=== PATIENT | male | born 1950 | race Caucasian/White ===

== ENCOUNTER 2016-05-08 06:02 | Day surgery (SDC) | payer OTHER ==
[~2016-05-08] VITALS: Ht 180.3 cm; Wt 91.8 kg
[~2016-05-08 06:02] MED LIST: LISI-127 PO; PANT40TA32 PO
--- OUTSIDE RECORDS SUMMARY | 2016-05-08 06:06 | XMS REPORT | Referral Summary ---
Author Author [facility] Organization [facility] Address Unknown Phone Unavailable Care Team Providers Care Water Conservation Specialist Name Role Phone Jae Qureshi Primary Care Physician [phone] Encounter [facility] Date(s): 06/11/14 - 06/11/14 [facility] Family [address] [place] [address]- Discharge Disposition: 01-Home or Self Care Attending Physician: Ed Qureshi MD Admitting Physician: Ed Qureshi MD Vital Signs Most recent to 1 oldest [Reference Range]: Peripheral Pulse 76 bpm Rate [60-100 bpm] (06/11/14 7:23 AM) Blood Pressure 104/76 mmHg [90-140/60-90 mmHg] (06/11/14 7:23 AM) Problem List Condition Effective Dates Status Health Status Informant Actinic Active keratoses(Confirmed) Benign essential Active hypertension(Confirm ed) BPH (benign Active prostatic hyperplasia)(Confirm ed) Testicular Active nodule(Confirmed) Well adult Active exam(Confirmed) Need for hepatitis A Active and B vaccination(Confirme d) Allergies, Adverse Reactions, Alerts No Known Medication Allergies Medications lisinopril 10 mg oral tablet 10 mg 1 tabs, Oral, Daily, # 90 tabs, 3 Refill(s), Pharmacy: [facility] # [id number], DC 5 mg Lisinopril, 1 tabs Oral Daily Start Date: 10/29/14 Status: Ordered lisinopril 5 mg oral tablet 1 tabs, Oral, Daily, # 90 tabs, 3 Refill(s), Pharmacy: [facility] #[id number] , 1 tabs Oral Daily,x90 days Start Date: 06/11/14 Stop Date: 06/06/15 Status: Ordered Results Hematology Most recent to 1 oldest [Reference Range]: WBC [4.8-10.8 6.0 10*3/uL 10*3/uL] (06/11/14 8:47 AM) RBC [4.60-6.20 4.73 10*6/uL 10*6/uL] (06/11/14 8:47 AM) Hgb [14.0-18.0 14.5 gm/dL gm/dL] (06/11/14 8:47 AM) Hct [42.0-52.0 %] 42.2 % (06/11/14 8:47 AM) MCV [82.0-99.0 fL] 89.2 fL (06/11/14 8:47 AM) MCH [27.0-32.0 pg] 30.7 pg (06/11/14:47 AM) MCHC [32.0-36.0 34.4 gm/dL gm/dL] (06/11/14 8:47 AM) RDW [11.5-14.5 %] 12.5 % (06/11/14 8:47 AM) Platelet [150-400 229 10*3/uL 10*3/uL] (06/11/14 8:47 AM) MPV [8.8-14.8 fL] 10.4 fL (06/11/14 8:47 AM) Immature 0.0 % Granulocytes (06/11/14 8:47 AM) [0.0-1.0 %] Neutrophils [51-75 51 % %] (06/11/14 8:47 AM) Lymphocytes [20-46 36 % %] (06/11/14 8:47 AM) Monocytes [4-11 %] 9 % (06/11/14 8:47 AM) Eosinophils [0-4 %] 4 % (06/11/14 8:47 AM) Basophils [0-2 %] 1 % (06/11/14 8:47 AM) Neutro Absolute 3.04 10*3 [1.90-7.00 10*3] (06/11/14 8:47 AM) Lymph Absolute 2.15 THOUS [0.80-3.30 THOUS] (06/11/14 8:47 AM) [place] Absolute 0.51 THOUS [0.30-1.00 THOUS] (06/11/14 8:47 AM) Eos Absolute 0.24 THOUS [0.00-0.50 THOUS] (06/11/14 8:47 AM) Baso Absolute 0.05 THOUS [0.00-0.20 THOUS] (06/11/14 8:47 AM) Chemistry Most recent to 1 oldest [Reference Range]: Sodium Lvl [135-144 144 mEq/L mEq/L] (06/11/14 8:47 AM) Potassium Lvl 4.2 mEq/L [3.5-5.2 mEq/L] (06/11/14 8:47 AM) Chloride [99-111 113 mEq/L mEq/L] *HI* (06/11/14 8:47 AM) CO2 [23-31 mEq/L] 24 mEq/L (06/11/14 8:47 AM) AGAP [3-20] 7 (06/11/14 8:47 AM) BUN [8-26 mg/dL] 13 mg/dL (06/11/14 8:47 AM) Glucose Lvl [70-99 95 mg/dL mg/dL] (06/11/14 8:47 AM) Creatinine Lvl 1.14 mg/dL [0.72-1.25 mg/dL] (06/11/14 8:47 AM) eGFR [>60 mL/min] >60 mL/min 1 (06/11/14 8:47 AM) Calcium Lvl 9.1 mg/dL [8.9-10.5 mg/dL] (06/11/14 8:47 AM) Albumin Lvl [3.4-4.8 4.3 gm/dL gm/dL] (06/11/14 8:47 AM) Total Protein 6.4 gm/dL [6.2-8.1 gm/dL] (06/11/14 8:47 AM) Globulin [1.8-4.0 2.1 gm/dL gm/dL] (06/11/14 8:47 AM) ALT [0-55 U/L] 22 U/L (06/11/14 8:47 AM) AST [5-34 U/L] 22 U/L (06/11/14 8:47 AM) Alk Phos [40-150 100 U/L U/L] (06/11/14 8:47 AM) Bili Total [0.2-1.2 0.8 mg/dL mg/dL] (06/11/14 8:47 AM) PSA (wihout Reflex 1.3 ng/mL 2 Free) [0.0-4.5 (06/11/14 8:47 AM) ng/mL] Chol [0-199 mg/dL] 161 mg/dL (06/11/14 8:47 AM) Trig [0-149 mg/dL] 101 mg/dL (06/11/14 8:47 AM) HDL [40-84 mg/dL] 41 mg/dL (06/11/14 8:47 AM) LDL [0-130 mg/dL] 100 mg/dL (06/11/14 8:47 AM) VLDL Cholesterol 20 mg/dL [0-28 mg/dL] (06/11/14 8:47 AM) Cardiac Risk 3.9 [0.0-5.7] (06/11/14 8:47 AM) 1Result Comment: Multiply eGFR results by 1.21 for race. 2Result Comment: AUA PSA Best Practice Guidelines: Age-Adjusted PSA Values by Ethnic Group Age Range Asians - Caucasians Americans 40-49 0-2.0 0-2.0 0-2.5 50-59 0-3.0 0-4.0 0-3.5 60-69 0-4.0 0-4.5 0-4.5 70-79 0-5.0 0-5.5 0-6.5 Urinalysis Most recent to 1 oldest [Reference Range]: UA Color Yellow (06/11/14 8:54 AM) UA Appear Clear (06/11/14 8:54 AM) UA pH [5.0-8.0] 5.5 (06/11/14 8:54 AM) UA Leuk Est Negative [Negative] (06/11/14 8:54 AM) UA Nitrite Negative [Negative] (06/11/14 8:54 AM) UA Protein Negative [Negative] (06/11/14 8:54 AM) UA Glucose Negative [Negative] (06/11/14 8:54 AM) UA Ketones Negative [Negative] (06/11/14 8:54 AM) UA Urobilinogen 0.2 mg/dL [<1.0 mg/dL] (06/11/14 8:54 AM) UA Bili [Negative] Negative (06/11/14 8:54 AM) UA Blood [Negative] Negative (06/11/14 8:54 AM) UA Spec Grav 1.021 [1.003-1.030] (06/11/14 8:54 AM) Type Clean Catch (06/11/14 8:54 AM) Immunizations Vaccine Date Refusal Reason hepatitis A-hepatitis B vaccine 06/11/14 zoster vaccine live 01/13/13 Procedures Procedure Date Related Diagnosis Body Site Collection of venous blood by venipuncture 06/11/14 Esophagogastroduodenoscopy 2011 Colonoscopy 2006 Esophagogastroduodenoscopy 2006 Breast biopsy sample1 1999 Achilles tendon repair2 1997 Tendon repair by distal insertion3 1994 Cholecystectomy 1974 Tonsillectomy with adenoidectomy 1958 1left breast cyst removed--benign 2rigfht Achilles 3left thumb Social History Social History Type Response Smoking Status Never smoker Assessment and Plan Extracted from: Title: Ambulatory Patient Education Author: Ed Qureshi MD Date: Family Medicine Health Maintenance, Males A healthy lifestyle and preventative care can promote health and wellness. Maintain regular health, dental, and eye exams. Eat a healthy diet. Foods like vegetables, fruits, whole grains, low-fat dairy products, and lean protein foods contain the nutrients you need and are low in calories. Decrease your intake of foods high in solid fats, added sugars , and salt. Get information about a proper diet from your health care provider, if necessary. Regular physical exercise is one of the most important things you can do for your health. Most adults should get at least 150 minutes of moderate- intensity exercise (any activity that increases your heart rate and causes you to sweat) each week. In addition, most adults need muscle-strengthening exercises on 2 or more days a week. Maintain a healthy weight. The body mass index (BMI) is a screening tool to identify possible weight problems. It provides an estimate of body fat based on height and weight. Your health care provider can find your BMI and can help you achieve or maintain a healthy weight. For males 20 years and older: A BMI below 18.5 is considered underweight. A BMI of 18.5 to 24.9 is normal. A BMI of 25 to 29.9 is considered overweight. A BMI of 30 and above is considered obese. Maintain normal blood lipids and cholesterol by exercising and minimizing your intake of saturated fat. Eat a balanced diet with plenty of fruits and vegetables. Blood tests for lipids and cholesterol should begin at age 20 and be repeated every 5 years. If your lipid or cholesterol levels are high, you are over 50, or you are at high risk for heart disease, you may need your cholesterol levels checked more frequently.Ongoing high lipid and cholesterol levels should be treated with medicines, if diet and exercise are not working. If you smoke, find out from your health care provider how to quit. If you do not use tobacco, do not start. Lung cancer screening is recommended for adults aged 5580 years who are at high risk for developing lung cancer because of a history of smoking. A yearly low-dose CT scan of the lungs is recommended for people who have at least a 85-plly-sbod history of smoking and are a current smoker or have quit within the past 15 years. A pack year of smoking is smoking an average of 1 pack of cigarettes a day for 1 year (for example, a 71-okgy-ilyj history of smoking could mean smoking 1 pack a day for 30 years or 2 packs a day for 15 years). Yearly screening should continue until the smoker has stopped smoking for at least 15 years. Yearly screening should be stopped for people who develop a health problem that would prevent them from having lung cancer treatment. If you choose to drink alcohol, do not have more than 2 drinks per day. One drink is considered to be 12 oz (360 mL) of beer, 5 oz (150 mL) of wine, or 1.5 oz (45 mL) of liquor. Avoid use of street drugs. Do not share needles with anyone. Ask for help if you need support or instructions about stopping the use of drugs. High blood pressure causes heart disease and increases the risk of stroke. Blood pressure should be checked at least every 12 years. Ongoing high blood pressure should be treated with medicines if weight loss and exercise are not effective. If you are 4579 years old, ask your health care provider if you should take aspirin to prevent heart disease. Diabetes screening involves taking a blood sample to check your fasting blood sugar level. This should be done once every 3 years after age 45, if you are at a normal weight and without risk factors for diabetes. Testing should be considered at a younger age or be carried out more frequently if you are overweight and have at least 1 risk factor for diabetes. Colorectal cancer can be detected and often prevented. Most routine colorectal cancer screening begins at the age of 50 and continues through age 75. However, your health care provider may recommend screening at an earlier age if you have risk factors for colon cancer. On a yearly basis, your health care provider may provide home test kits to check for hidden blood in the stool. A small camera at the end of a tube may be used to directly examine the colon (sigmoidoscopy or colonoscopy ) to detect the earliest forms of colorectal cancer. Talk to your health care provider about this at age 50, when routine screening begins. A direct exam of the colon should be repeated every 5 10 years through age 75, unless early forms of pre-cancerous polyps or small growths are found. People who are at an increased risk for hepatitis B should be screened for this virus. You are considered at high risk for hepatitis B if: You were born in a country where hepatitis B occurs often. Talk with your health care provider about which countries are considered high-risk. Your parents were born in a high-risk country and you have not received a shot to protect against hepatitis B (hepatitis B vaccine) . You have HIV or AIDS. You use needles to inject street drugs. You live with, or have sex with, someone who has hepatitis B. You are a man who has sex with other men (MSM). You get hemodialysis treatment. You take certain medicines for conditions like cancer, organ transplantation, and autoimmune conditions. Hepatitis C blood testing is recommended for all people born from 1945 through 1965 and any individual with known risk factors for hepatitis C. Healthy men should no longer receive prostate-specific antigen (PSA) blood tests as part of routine cancer screening. Talk to your health care provider about prostate cancer screening. Testicular cancer screening is not recommended for adolescents or adult males who have no symptoms. Screening includes self-exam, a health care provider exam, and other screening tests. Consult with your health care provider about any symptoms you have or any concerns you have about testicular cancer. Practice safe sex. Use condoms and avoid high-risk sexual practices to reduce the spread of sexually transmitted infections (STIs). Use sunscreen. Apply sunscreen liberally and repeatedly throughout the day. You should seek shade when your shadow is shorter than you. Protect yourself by wearing long sleeves, pants, a wide-brimmed hat, and sunglasses year round, whenever you are outdoors. Tell your health care provider of new moles or changes in moles, especially if there is a change in shape or color. Also tell your provider if a mole is larger than the size of a pencil eraser. A one-time screening for abdominal aortic aneurysm (AAA) and surgical repair of large AAAs by ultrasound is recommended for men aged 6575 years who are current or former smokers. Stay current with your vaccines (immunizations ). Document Released: 07/20/2008 Document Revised: 11/12/2013 Document Reviewed: Exit[employer] Patient Information 2014 [employer]. No follow up information was provided. Extracted from: Title: Male physical Author: Ed Qureshi MD Date: 06/11/14 Impression and Plan Diagnosis Actinic keratoses (ICD9 702.0, Working, Medical). Benign essential hypertension (ICD9 401.1, Working, Medical). Testicular nodule (ICD9 608.89, Working, Medical). Well adult exam (ICD9 V70.0, Working, Medical). Plan: Try Flonase nasal spray or one week to see if that clears up your ear. If not--see an ENT Dr. for evaluation. Schedule an ultrasound of the scrotum at the lab desk. Get lab drawn today. Reduce your Lisinopril to 5 mg daily and then check your BP periodically. Healthy diet and daily exercise helps BP. Twinrix vaccine #1 today. See me in 6 months and as needed., Consider Efudex cream to the face for 2-4 weeks for treatment of the actinic keratoses.. Orders Orders (Selected) Outpatient Orders Ordered Periodic Comp Preventive Med 40 to 64 years Est 21806: hepatitis A-hepatitis B vaccine: 0.5 mL, IntraMuscular, Once Future (On Hold) CBC w/ Differential: CMP: Fasting Lipid Profile: PSA: Routine Urinalysis: US Scrotum (Contents): Prescriptions Prescribed lisinopril 5 mg oral tablet: 1 tabs, Oral, Daily, for 90 days, 90 tabs, 3 Refill (s). Dx/Order Association Plan: Diagnosis: Actinic keratoses Comment: Ordered: Periodic Comp Preventive Med 40 to 64 years Est 42948; 8:14:00 CDT, Well adult exam | Testicular nodule | Benign essential hypertension | Actinic keratoses | Family history of prostate cancer Diagnosis: BPH (benign prostatic hyperplasia) Comment: Ordered: Periodic Comp Preventive Med 40 to 64 years Est 77528; 8:14:00 CDT, Well adult exam | Testicular nodule | Benign essential hypertension | Actinic keratoses | Family history of prostate cancer Diagnosis: Benign essential hypertension Comment: Ordered: Periodic Comp Preventive Med 40 to 64 years Est 32875; 8:14:00 CDT, Well adult exam | Testicular nodule | Benign essential hypertension | Actinic keratoses | Family history of prostate cancer Diagnosis: Family history of prostate cancer Comment: Ordered: Periodic Comp Preventive Med 40 to 64 years Est 32729; 8:14:00 CDT, Well adult exam | Testicular nodule | Benign essential hypertension | Actinic keratoses | Family history of prostate cancer Diagnosis: Need for hepatitis A and B vaccination Comment: Ordered: hepatitis A-hepatitis B vaccine; 0.5 mL, IntraMuscular, Once, First Dose: 06/11/14 8:19:00 CDT, Stop Date: 06/11/14 8:19:00 CDT Diagnosis: Testicular nodule Comment: Ordered: Periodic Comp Preventive Med 40 to 64 years Est 47018; 8:14:00 CDT, Well adult exam | Testicular nodule | Benign essential hypertension | Actinic keratoses | Family history of prostate cancer Diagnosis: Well adult exam Comment: Ordered: hepatitis A-hepatitis B vaccine; 0.5 mL, IntraMuscular, Once, First Dose: 06/11/14 8:19:00 CDT, Stop Date: 06/11/14 8:19:00 CDT Periodic Comp Preventive Med 40 to 64 years Est 19475; 06/11/14 8:14:00 CDT, Well adult exam | Testicular nodule | Benign essential hypertension | Actinic keratoses | Family history of prostate cancer Additional Orders: Comment: Future Orders: CBC w/ Differential,Blood, Routine Collect, 06/11/14 , Once, Lab Collect, Benign essential hypertension, Order for future visit Future Orders: CMP,Blood, Routine Collect, 06/11/14, Once, Lab Collect, Benign essential hypertension, Order for future visit Future Orders: Fasting Lipid Profile,Blood, Routine Collect, , Once, Lab Collect, Benign essential hypertension, Order for future visit Future Orders: PSA,Blood, Routine Collect, 06/11/14, Once, Lab Collect, Well adult exam, Order for future visit Future Orders: Routine Urinalysis,Urine, Routine collect, 06/11/14 , Once, Nurse Collect Non-Blood, Benign essential hypertension, Order for future visit Future Orders: US Scrotum (Contents),06/11/14, Routine, Reason: Other (please specify), Reason: right testicular nodule, Testicular nodule Ordered: lisinopril 5 mg oral tablet,1 tabs, Oral, Daily, # 90 tabs , 3 Refill(s), Pharmacy: [facility] #[id number], 1 tabs Oral Daily,x90 days End of Orders ."
--- OUTSIDE RECORDS SUMMARY | 2016-05-08 06:06 | XMS REPORT | Continuity of Care Document ---
Author Author Ed Qureshi MD Organization [facility] Address [address] [facility] [place] [address] Phone Care Team Providers Care Wet Char Conveyor Tender Name Role Phone Ed Qureshi PP Unavailable Payers Payer name Insurance type Covered constitution party ID Authorization(s) Unknown Problems Condition Effective Dates (start - stop) Clinical Status NEED FOR PROPHYLACTIC VACCINATION AND INOCULATION, OTHER VIRAL DISEASES - Routine Medical Exam - *Stable Hypertension, Benign - *Chronic RESTLESS LEGS SYNDROME - BENIGN HYPERTENSION - ESOPHAGEAL REFLUX - CHRONIC LIVER DIS NEC - Knee pain, left - *Chronic Effusion of left knee - *Acute Effusion of lower leg joint - *Chronic Meniscus tear - *Symptomatic Family History Family Member Diagnosis Age At Onset Status Father (Unknown) Alive and well (Unknown) Brother (Unknown) Cancer -prostate Yes Family h/o (Unknown) Diabetes No Maternal grandfather (Unknown) Myocardial infarction Yes Sister (Unknown) stillbirth Yes Paternal grandfather (Unknown) atherosclerosis Yes Mother (Unknown) Motor Vehicle Accident Yes Social History Social History Element Description Quantity Unknown Allergies, Adverse Reactions, Alerts Substance Reaction Severity Status Unknown Medications Medication Instructions Dosage Effective Dates (start - stop) Status Protonix 40 mg tablet,delayed release Take 1 tablet by mouth every day as needed. - Active lisinopril 10 mg tablet Take 1 tablet by mouth daily - Active Immunizations Vaccine Date Status Comments Zoster completed Tdap (Adacel ) completed - Completed reason: source unspecified Results Test Name Date and Time Measure Units Reference Range Abnormal Flag Comments Panel Description: CBC WBC 08:38:00 5.9 K/uL 4.8-10.8 RBC 08:38:00 4.79 M/uL 4.60-6.20 HGB 08:38:00 14.6 g/dl 14.0-18.0 HCT 08:38:00 42.5 % 42.0-52.0 MCV 08:38:00 88.7 fL 82.0-99.0 MCH 08:38:00 30.5 pg 27.0-32.0 MCHC 08:38:00 34.4 g/dL 32.0-36.0 RDW 08:38:00 12.6 % 11.5-14.5 MPV 08:38:00 10.3 fL 8.8-14.8 Platelet Count 08:38:00 218 K/uL 150-400 Immature Granulocytes 08:38:00 0.2 % 0.0-1.0 Absolute Neutrophils 08:38:00 3.29 THOUS 1.90-7.00 Absolute Lymphocytes 08:38:00 1.80 THOUS 0.80-3.30 Absolute Monocytes 08:38:00 0.56 THOUS 0.30-1.00 Absolute Eosinophils 08:38:00 0.23 THOUS 0.00-0.50 Absolute Basophils 08:38:00 0.04 THOUS 0.00-0.20 Neutrophils 08:38:00 55 % 51-75 Lymphocytes 08:38:00 30 % 20-46 Monocytes 08:38:00 9 % 4-11 Eosinophils 08:38:00 4 % 0-4 Basophils 08:38:00 1 % 0-2 Testing performed at [facility] Lab [address] [facility] [address] Cable Tester Dalton Goodson MD Panel Description: Chemistry Profile Glucose 08:38:00 96 mg/dL 70-99 BUN 08:38:00 16 mg/dL 8-26 Creatinine 08:38:00 1.16 mg/dL 0.72-1.25 Calcium 08:38:00 9.2 mg/dL 8.9-10.5 Sodium 08:38:00 144 mEq/L 135-144 Potassium 08:38:00 4.2 mEq/L 3.5-5.2 Chloride 08:38:00 110 mEq/L 99-111 CO2 08:38:00 27 mEq/L 23-31 Albumin 08:38:00 4.2 g/dL 3.4-4.8 Bilirubin Total 08:38:00 0.6 mg/dL 0.2-1.2 Alkaline Phosphatase 08:38:00 92 U/L 40-150 Protein 08:38:00 6.5 g/dL 6.2-8.1 ALT (SGPT) 08:38:00 23 U/L 0-55 AST (SGOT) 08:38:00 20 U/L 5-34 Anion Gap 08:38:00 7 3-20 Globulin 08:38:00 2.3 g/dL 1.8-4.0 Testing performed at [facility] Lab [address] [place], [place] [address] Cable Tester Dalton Goodson MD Panel Description: Lipid Profile-[facility] Cholesterol 08:38:00 164 mg/dL 0-199 Triglycerides 08:38:00 94 mg/dL 0-149 HDL Cholesterol 08:38:00 43 mg/dL 40-84 LDL Cholesterol 08:38:00 102 mg/dL 0-130 VLDL Cholesterol 08:38:00 19 mg/dL 0-28 Cardiac Risk 08:38:00 3.8 0.0-5.7 Testing performed at [facility] Lab [address] [place] [id number] Cable Tester Dalton Goodson MD Panel Description: Non-HDL Cholesterol-[facility] Non-HDL Cholesterol 08:38:00 121 mg/dL 0-159 Testing performed at [facility] Reference Lab [address] [place] [address] Cable Tester Dalton Goodson MD Panel Description: EGFR-[facility] eGFR 08:38:00 >60 mL/min >60 Multiply eGFR results by 1.21 for race.Testing performed at [facility] Lab [address] [place] [address] Cable Tester Dalton Goodson MD Panel Description: Prostatic Specific Antigen-[facility] PSA 08:38:00 0.8 ng/mL 0.0-4.5 AUA PSA Best Practice Guidelines: Age-Adjusted PSA Values by Ethnic GroupAge Range Asians - Caucasians [id number] 0-2.0 0-2.0 0-2.550-59 0-3.0 0-4.0 0-3.560-69 0-4.0 0-4.5 0-4.570-79 0-5.0 0-5.5 0-6.5Testing performed at [facility] [address] [place] [address] Cable Tester Dalton Goodson MD Panel Description: Urinalysis with Reflex Microscopic Appearance 08:38:00 Turbid A Color 08:38:00 Yellow Glucose, Urine 08:38:00 Negative Negative Ketones 08:38:00 Negative Negative Blood 08:38:00 Negative Negative Protein 08:38:00 Negative Negative Nitrites 08:38:00 Negative Negative Bilirubin 08:38:00 Negative Negative Specific [place] 08:38:00 1.028 1.003-1.03 pH 08:38:00 5.0 5.0-8.0 Urobilinogen 08:38:00 0.2 mg/dL <1.0 Leukocyte Esterase 08:38:00 Negative Negative Testing performed at [facility] [address] [place] [address] Cable Tester Dalton Goodson MD Vital Signs Date / Time: Height Weight Pulse Rate Blood Pressure Temperature /07:58:00 71.38 in 196.00 lbs 78 /min 122/73 mm[Hg] 97.9 F Procedures Procedure Date ZOSTER VACC, SC IMMUNIZ,ADMIN,SINGLE Encounters Encounter Location Date Patient Visit [facility] Patient Visit [facility] Patient Visit [facility] Patient Visit [facility] Patient Visit [facility] Patient Visit [facility] Advance Directives Directive Effective Date Unknown
--- OUTSIDE RECORDS SUMMARY | 2016-05-08 06:07 | XMS REPORT | Continuity of Care Document ---
Author Author [facility] Organization [facility] Address Unknown Phone Unavailable Allergies Active Description Code Type Severity Reaction Onset Reported/Identified Relationship to Patient Clinical Status Yes No Known Medication Allergies NKMA N/A N/A 06/11/2014 Medications Problems Procedures Results Encounters ACCT No. Visit Date/Time Discharge Status Pt. Type Provider Facility Loc./Unit Complaint [id number] 05/01/2013 08:22:00 05/01/2013 23 :59:59 [facility] Outpatient [id number] 01/13/2013 07:34:00 01/13/2013 23 :59:59 [facility] Out[facility]
--- OUTSIDE RECORDS SUMMARY | 2016-05-08 06:07 | XMS REPORT | Referral Summary ---
Author Author [facility] Organization [facility] Address Unknown Phone Unavailable Care Team Providers Care Skoog Machine Operator Name Role Phone Jae Qureshi Primary Care Physician [phone] Encounter Date(s): 10/21/15 - 10/21/15 [facility] [address] [place] [address]- Discharge Diagnosis: Need for influenza vaccination Discharge Diagnosis: Well adult exam Discharge Diagnosis: BPH (benign prostatic hyperplasia) Discharge Diagnosis: Benign essential hypertension Discharge Diagnosis: Fatty liver Discharge Diagnosis: Need for hepatitis A and B vaccination Discharge Disposition: 01-Home or Self Care Attending Physician: Ed Qureshi MD Admitting Physician: Ed Qureshi MD Vital Signs Most recent to 1 oldest [Reference Range]: Temperature Tympanic 35.8 degC [36.6-38.1 degC] *LOW* (10/21/15 7:07 AM) Peripheral Pulse 70 bpm Rate [60-100 bpm] (10/21/15 7:07 AM) Blood Pressure 124/70 mmHg [90-140/60-90 mmHg] (10/21/15 7:07 AM) Problem List Condition Effective Dates Status Health Status Informant Actinic Active keratoses(Confirmed) Powell Active esophagus(Confirmed) Benign essential Active hypertension(Confirm ed) BPH (benign Active prostatic hyperplasia)(Confirm ed) Testicular Active nodule(Confirmed) GERD(Confirmed) Active Hypertension(Confirm Active ed) Well adult Active exam(Confirmed) Need for hepatitis A Active and B vaccination(Confirme d) Allergies, Adverse Reactions, Alerts No Known Medication Allergies Medications Co Q-10 100 mg oral capsule 100 mg 1 caps, Oral, Daily, 0 Refill(s) Start Date: 10/21/15 Status: Ordered Fish Oil 1000 mg oral capsule 1,000 mg 1 caps, Oral, Daily, 0 Refill(s) Start Date: 10/21/15 Status: Ordered lisinopril 10 mg oral tablet 10 mg 1 tabs, Oral, Daily, # 90 tabs, 3 Refill(s), Pharmacy: [facility] # [id number], DC 5 mg Lisinopril, 1 tabs Oral Daily Start Date: 10/29/14 Status: Ordered Results Hematology Most recent to 1 oldest [Reference Range]: WBC [4.8-10.8 5.8 10*3/uL 10*3/uL] (10/21/15 8:20 AM) RBC [4.60-6.20] 4.46 *LOW* (10/21/15 8:20 AM) Hgb [14.0-18.0 13.9 gm/dL gm/dL] *LOW* (10/21/15 8:20 AM) Hct [42.0-52.0 %] 39.8 % *LOW* (10/21/15 8:20 AM) MCV [82.0-99.0 fL] 89.2 fL (10/21/15 8:20 AM) MCH [27.0-32.0 pg] 31.2 pg (10/21/15 8:20 AM) MCHC [32.0-36.0 34.9 gm/dL gm/dL] (10/21/15 8:20 AM) RDW [11.5-14.5 %] 12.9 % (10/21/15 8:20 AM) Platelet [150-400 208 10*3/uL 10*3/uL] (10/21/15 8:20 AM) MPV [8.8-14.8 fL] 10.4 fL (10/21/15 8:20 AM) Immature 0.3 % Granulocytes (10/21/15 8:20 AM) [0.0-1.0 %] Neutrophils [51-75 46 % %] *LOW* (10/21/15 8:20 AM) Lymphocytes [20-46 35 % %] (10/21/15 8:20 AM) Monocytes [4-11 %] 11 % (10/21/15 8:20 AM) Eosinophils [0-4 %] 7 % *HI* (10/21/15 8:20 AM) Basophils [0-2 %] 1 % (10/21/15 8:20 AM) Neutro Absolute 2.64 10*3 [1.90-7.00 10*3] (10/21/15 8:20 AM) Lymph Absolute 2.04 10*3 [0.80-3.30 10*3] (10/21/15 8:20 AM) [place] Absolute 0.61 10*3 [0.30-1.00 10*3] (10/21/15 8:20 AM) Eos Absolute 0.43 10*3 [0.00-0.50 10*3] (10/21/15 8:20 AM) Baso Absolute 0.04 10*3 [0.00-0.20 10*3] (10/21/15 8:20 AM) Chemistry Most recent to 1 oldest [Reference Range]: Sodium Lvl [135-144 141 mEq/L mEq/L] (10/21/15 8:20 AM) Potassium Lvl 4.3 mEq/L [3.5-5.2 mEq/L] (10/21/15 8:20 AM) Chloride [99-111 111 mEq/L mEq/L] (10/21/15 8:20 AM) CO2 [23-31 mEq/L] 25 mEq/L (10/21/15 8:20 AM) AGAP [3-20] 5 (10/21/15 8:20 AM) BUN [8-26 mg/dL] 21 mg/dL (10/21/15 8:20 AM) Glucose Lvl [70-99 96 mg/dL mg/dL] (10/21/15 8:20 AM) Creatinine Lvl 1.14 mg/dL [0.72-1.25 mg/dL] (10/21/15 8:20 AM) eGFR [>60 mL/min] >60 mL/min 1 (10/21/15 8:20 AM) Calcium Lvl 8.7 mg/dL [8.9-10.5 mg/dL] *LOW* (10/21/15 8:20 AM) Albumin Lvl [3.4-4.8 4.2 gm/dL gm/dL] (10/21/15 8:20 AM) Total Protein 6.1 gm/dL [6.0-7.6 gm/dL] (10/21/15 8:20 AM) Globulin [1.8-4.0 1.9 gm/dL gm/dL] (10/21/15 8:20 AM) ALT [0-55 U/L] 27 U/L (10/21/15 8:20 AM) AST [5-34 U/L] 24 U/L (10/21/15 8:20 AM) Alk Phos [40-150 98 U/L U/L] (10/21/15 8:20 AM) Bili Total [0.2-1.2 0.4 mg/dL mg/dL] (10/21/15 8:20 AM) 1Result Comment: Multiply eGFR results by 1.21 for race. Urinalysis Most recent to 1 oldest [Reference Range]: UA Color Yellow (10/21/15 8:28 AM) UA Appear Clear (10/21/15 8:28 AM) UA pH [5.0-8.0] 5.5 (10/21/15 8:28 AM) UA Leuk Est Negative [Negative] (10/21/15 8:28 AM) UA Nitrite Negative [Negative] (10/21/15 8:28 AM) UA Protein Negative [Negative] (10/21/15 8:28 AM) UA Glucose Negative [Negative] (10/21/15 8:28 AM) UA Ketones Negative [Negative] (10/21/15 8:28 AM) UA Urobilinogen 0.2 mg/dL [<1.0 mg/dL] (10/21/15 8:28 AM) UA Bili [Negative] Negative (10/21/15 8:28 AM) UA Blood [Negative] Negative (10/21/15 8:28 AM) UA Spec Grav 1.018 [1.003-1.030] (10/21/15 8:28 AM) Type Clean Catch (10/21/15 8:28 AM) Immunizations Vaccine Date Refusal Reason tetanus/diphth/pertuss (Tdap) adult/adol 09/05/07 hepatitis A-hepatitis B vaccine 10/21/15 hepatitis A-hepatitis B vaccine 06/11/14 influenza virus vaccine, inactivated 10/21/15 zoster vaccine live 01/13/13 Procedures Procedure Date Related Diagnosis Body Site Collection of venous blood by venipuncture 10/21/15 Esophagogastroduodenoscopy 2012 Cyst excised, left breast 2008 Colonoscopy 2007 Esophagogastroduodenoscopy 2007 Breast biopsy sample1 1999 Achilles tendon repair2 1997 Tendon repair by distal insertion3 1994 Cholecystectomy 1974 Appendectomy 1974 Tonsillectomy with adenoidectomy 1958 1left breast cyst removed--benign 2rigfht Achilles 3left thumb Social History Social History Type Response Smoking Status Never smoker Assessment and Plan Extracted from: Title: Ambulatory Patient Education Author: Ed Qureshi MD Date: 10/20 Preventive Medicine Health Maintenance, Male A healthy lifestyle and preventative care can [...] cholesterol levels are high, you are over age 50, or you are at high risk for heart disease, you may need your cholesterol levels checked more frequently.Ongoing high lipid and cholesterol levels should be treated with medicines if diet and exercise are not working. [...] for people who have at least a 00-liyd-zllu history of smoking and are current smokers or have quit within the past 15 years. A pack year of smoking is smoking an average of 1 pack of cigarettes a day for 1 year (for example, a 63-cbtt-ryws history of smoking could mean smoking 1 [...] 1.5 oz (45 mL) of liquor. Avoid the use of street drugs. Do not share needles with anyone. Ask for help if you need support or instructions about stopping the use of drugs. High blood pressure causes heart disease and increases the risk of stroke. High blood pressure is more likely to develop in: People who have blood pressure in the end of the normal range (319816/ 8589 mm Hg). People who are overweight or obese. People who are . If you are 1839 years of age, have your blood pressure checked every 3 5 years. If you are 40 years of age or older, have your blood pressure checked every year. You should have your blood pressure measured twiceonce when you are at a hospital or clinic, and once when you are not at a hospital or clinic. Record the average of the two measurements. To check your blood pressure when you are not at a hospital or clinic, you can use: An automated blood pressure machine at a pharmacy. A home blood pressure monitor. If you are 4579 years old, ask your health care provider if you should take aspirin to prevent heart disease. Diabetes screening involves taking a blood sample to check your fasting blood sugar level. This should be done once every 3 years after age 45 if you are at a normal weight [...] to directly examine the colon (sigmoidoscopy or colonoscopy) to detect the earliest forms of colorectal cancer. Talk to your health care provider about this at age 50 when routine screening begins. A direct exam of the colon should be repeated every 510 years through age 75, unless early forms of precancerous polyps or small growths are found. People who are at an increased risk for hepatitis B should be screened for this virus. You are considered at high risk for hepatitis B if: You were born in a country where hepatitis B occurs often. Talk with your health care provider about which countries are considered high risk. Your parents were born in a high-risk country and you have not received a shot to protect against hepatitis B (hepatitis B vaccine). You have HIV or AIDS. You use [...] the spread of sexually transmitted infections (STIs). You should be screened for STIs, including gonorrhea and chlamydia if: You are sexually active and are younger than 24 years. You are older than 24 years, and your health care provider tells you that you are at risk for this type of infection. Your sexual activity has changed since you were last screened, and you are at an increased risk for chlamydia or gonorrhea. Ask your health care provider if you are at risk. If you are at risk of being infected with HIV, it is recommended that you take a prescription medicine daily to prevent HIV infection. This is called pre-exposure prophylaxis (PrEP). You are considered at risk if: You are a man who has sex with other men (MSM). You are a heterosexual man who is sexually active with multiple partners. You take drugs by injection. You are sexually active with a partner who has HIV. Talk with your health care provider about whether you are at high risk of being infected with HIV. If you choose to begin PrEP, you should first be tested for HIV. You should then be tested every 3 months for as long as you are taking PrEP. Use sunscreen. Apply sunscreen liberally and repeatedly throughout the day. You should seek shade when your shadow is shorter than you. Protect yourself by wearing long sleeves, pants, a wide-brimmed hat, and sunglasses year round whenever you are outdoors. Tell your health care provider of new moles or changes in moles, especially if there is a change in shape or color. Also, tell your health care provider if a mole is larger than the size of a pencil eraser. A one-time screening for abdominal aortic aneurysm (AAA) and surgical repair of large AAAs by ultrasound is recommended for men aged 6575 years who are current or former smokers. Stay current with your vaccines (immunizations). This information is not intended to replace advice given to you by your health care provider. Make sure you discuss any questions you have with your health care provider. Document Released: 07/20/2008 Document Revised: 02/12/2015 Document Reviewed: ExitCare Patient Information 2016 [employer] [facility]. No follow up information was provided. Extracted from: Title: Male physical Author: Ed Qureshi MD Date: 10/21/15 Impression and Plan Diagnosis Well adult exam (ASS04-GW Z00.00, Discharge, Medical). Benign essential hypertension (HRQ98-DB I10, Discharge, Medical). BPH (benign prostatic hyperplasia) (XTN13-NR N40.0, Discharge, Medical). Fatty liver (ADW15-UX K76.0, Discharge, Medical). Need for influenza vaccination (ZTA23-YF Z23, Discharge, Medical). Need for hepatitis A and B vaccination (DAD40-RD Z23, Discharge, Medical). Plan: 1) Healthy diet and daily exercise helps most things. 2) Non-fasting lab ordered today. 3) Twinrix (hepatitis A and B) #2 given today. You can get the third one after 4 months. 4) Flu shot given today. 5) See your eye doctor annually. 6) Continue your present meds. 7) See me in one year. 8) Colonoscopy to be scheduled in May 2016. 9) Schedule your liver sonogram sometime this year.. Orders Orders (Selected) Outpatient Orders Ordered Periodic Comp Preventive Med 40 to 64 years Est 530[address]: hepatitis A-hepatitis B vaccine: 0.5 mL, IntraMuscular, Once influenza virus vaccine, inactivated: 0.5 mL, IntraMuscular, Once Future (On Hold) CBC w/ Differential: CMP: Routine Urinalysis: US Liver: . Dx/Order Association Plan: Diagnosis: BPH (benign prostatic hyperplasia) Comment: Diagnosis: Benign essential hypertension Comment: Diagnosis: Fatty liver Comment: Diagnosis: Need for hepatitis A and B vaccination Comment: Diagnosis: Need for influenza vaccination Comment: Ordered: influenza virus vaccine, inactivated; 0.5 mL, IntraMuscular, Once, First Dose: 10/21/15 7:43:00 CDT, Stop Date: 10/21/15 7:43: 00 CDT hepatitis A-hepatitis B vaccine; 0.5 mL, IntraMuscular, Once, First Dose: 10/21/15 7:43:00 CDT, Stop Date: 10/21/15 7:43: 00 CDT Diagnosis: Well adult exam Comment: Ordered: Periodic Comp Preventive Med 40 to 64 years Est [address]47[address]; 7:36:00 CDT, Well adult exam Diagnosis: Benign essential hypertension Comment: Diagnosis: Well adult exam Comment: Diagnosis: Benign essential hypertension Comment: Diagnosis: Well adult exam Comment: Diagnosis: Benign essential hypertension Comment: Diagnosis: Well adult exam Comment: Diagnosis: BPH (benign prostatic hyperplasia) Comment: Diagnosis: Well adult exam Comment: Diagnosis: Fatty liver Comment: Additional Orders: Comment: Ordered: Co Q-10 100 mg oral capsule,100 mg 1 caps, Oral, Daily, 0 Refill(s) Ordered: Fish Oil 1000 mg oral capsule,1,000 mg 1 caps, Oral, Daily , 0 Refill(s) End of Orders .
--- OUTSIDE RECORDS SUMMARY | 2016-05-08 06:07 | XMS REPORT | Referral Summary ---
Author Author [facility] Organization [facility] Address Unknown Phone Unavailable Care Team Providers Care Media Sales Representative Name Role Phone Jae Qureshi Primary Care Physician [phone] Encounter VC Date(s): 06/11/14 - 06/11/14 [facility], Family [address] [place] [address]- Discharge Disposition: 01-Home or Self Care Attending [...] Daily, # 90 tabs, 3 Refill(s), Pharmacy: [facility] # [id number], DC 5 mg Lisinopril, 1 tabs Oral Daily Start Date: 10/29/14 Status: Ordered lisinopril 5 mg oral tablet 1 tabs, Oral, Daily, # 90 tabs, 3 Refill(s), Pharmacy: [facility] #[id number] , 1 tabs Oral Daily,x90 days Start [...] 2.15 THOUS [0.80-3.30 THOUS] (06/11/14 8:47 AM) [place] Absolute 0.51 THOUS [0.30-1.00 THOUS] (06/11/14 8:47 [...] for people who have at least a 43-bvrd-aebn history of smoking and are a current smoker or have quit within the past 15 years. A pack year of smoking is smoking an average of 1 pack of cigarettes a day for 1 year (for example, a 59-cjqy-fheu history of smoking could mean smoking 1 [...] 11/12/2013 Document Reviewed: ExitCare Patient Information 2014 Code42. No follow up information was provided. Extracted [...] Preventive Med 40 to 64 years Est 76[address]: hepatitis A-hepatitis B vaccine: 0.5 mL, IntraMuscular, Once Future (On Hold) CBC w/ Differential: CMP: Fasting Lipid Profile: PSA: Routine Urinalysis: US Scrotum (Contents): Prescriptions Prescribed lisinopril 5 mg oral tablet: 1 tabs, Oral, Daily, for 90 days, 90 tabs, 3 Refill (s). Dx/Order Association Plan: Diagnosis: Actinic keratoses Comment: Ordered: Periodic Comp Preventive Med 40 to 64 years Est 88236; 8:14:00 CDT, Well adult exam | Testicular nodule | Benign essential hypertension | Actinic keratoses | Family history of prostate cancer Diagnosis: BPH (benign prostatic hyperplasia) Comment: Ordered: Periodic Comp Preventive Med 40 to 64 years Est 07029; 8:14:00 CDT, Well adult exam | Testicular nodule | Benign essential hypertension | Actinic keratoses | Family history of prostate cancer Diagnosis: Benign essential hypertension Comment: Ordered: Periodic Comp Preventive Med 40 to 64 years Est 72816; 8:14:00 CDT, Well adult exam | Testicular nodule | Benign essential hypertension | Actinic keratoses | Family history of prostate cancer Diagnosis: Family history of prostate cancer Comment: Ordered: Periodic Comp Preventive Med 40 to 64 years Est 93020; 8:14:00 CDT, Well adult exam | Testicular nodule | Benign essential hypertension | Actinic keratoses | Family history of prostate cancer Diagnosis: Need for hepatitis A and B vaccination Comment: Ordered: hepatitis A-hepatitis B vaccine; 0.5 mL, IntraMuscular, Once, First Dose: 06/11/14 8:19:00 CDT, Stop Date: 06/11/14 8:19:00 CDT Diagnosis: Testicular nodule Comment: Ordered: Periodic Comp Preventive Med 40 to 64 years Est 84481; 8:14:00 CDT, Well adult exam | Testicular nodule | Benign essential hypertension | Actinic keratoses | Family history of prostate cancer Diagnosis: Well adult exam Comment: Ordered: hepatitis A-hepatitis B vaccine; 0.5 mL, IntraMuscular, Once, First Dose: 06/11/14 8:19:00 CDT, Stop Date: 06/11/14 8:19:00 CDT Periodic Comp Preventive Med 40 to 64 years Est 70023; 06/11/14 8:14:00 CDT, Well adult exam | [...] # 90 tabs , 3 Refill(s), Pharmacy: [facility] #[id number], 1 tabs Oral Daily,x90 days End of Orders ."
--- OUTSIDE RECORDS SUMMARY | 2016-05-08 06:07 | XMS REPORT | Continuity of Care Document ---
Author Author Adelaide Perez MD Ambulatory Address [address] [place] [address] [place] [address] Phone Care Team Providers Care Supervisor Water [employer] Name Role Phone TitusEd deleon TERENCE Unavailable Payers Payer name Insurance type Covered libertarian ID Authorization(s) Unknown Problems Condition Effective Dates [...] Dosage Effective Dates (start - stop) Status Reliv supplement - Active lisinopril 10 mg tablet Take 1 tablet by mouth daily - Active Immunizations Vaccine Date Status Comments Zoster completed Tdap (Adacel ) completed - Completed reason: source unspecified Results Test Name Date and Time Measure Units Reference Range Abnormal Flag Comments Panel Description: Urinalysis-Dipstick Site. 08:22:00 MID Color 08:22:00 Straw Clarity 08:22:00 Clear Specific [place]- 08:22:00 1.020 1.005-1.025 pH- 08:22:00 5 5.0-8.0 Leukocytes-C 08:22:00 neg Anastacia/uL Negative Nitrites- 08:22:00 neg Negative Protein- 08:22:00 neg mg/dL Negative TL-Avfzput-S 08:22:00 norm mg/dL Normal Ketones- 08:22:00 neg mg/dL Negative Urobilinogen- 08:22:00 norm mg/dL Normal Bilirubin- 08:22:00 neg mg/dL Negative Blood- 08:22:00 neg Chuy/uL Negative Vital Signs Date / Time: Height Weight Pulse Rate Blood Pressure Temperature Unknown Procedures Procedure Date Unknown Encounters Encounter Location Date Patient Visit [facility] Patient Visit Con[facility] Patient Visit [facility] Patient Visit [facility] Patient Visit [facility] Advance Directives Directive Effective Date Unknown
[2016-05-08 06:18] VITALS: Ht 180.3 cm; Wt 91.8 kg
[2016-05-08 06:19] VITALS: BP 133/77; PULSE 84; RESP 14; TEMP 98.7; O2SAT 97
[2016-05-08] MEDS ORDERED: LR 1,000 ML IV SCH (07:00)
[2016-05-08] MEDS ORDERED: LIDOCAINE 1% (10mg/ml) 2ml SDV INJ ONE (07:00)
--- NOTE | 2016-05-08 07:23 | ANESPREOP ---
Anesthesia Record Date and Time DATE: 05/08/16 TIME: 07:22 Pre-Op Diagnosis screening Proposed Surgical Procedure COLONOSCOPY NPO since: mn Allergies: Coded Allergies: NKDA (Verified Allergy, Unknown, 05/08/16) Ht/Wt/BMI Height: 5 ' 11.00 " Weight: 91.800 kg BMI: 28.2 kg/m2 Vital Signs Date Time Temp Pulse Resp B/P Pulse Ox O2 Delivery O2 Flow Rate FiO2 05/08/16 06:19 98.7 84 14 133/77 97 Room Air Medications Inpatient Medications Current Medications Medications (Trade) Dose Ordered Sig/Fawn Start Time Stop Time Status Last Admin Dose Admin Lactated Ringer's (Lactated Ringers) 1,000 ml @ 30 mls/hr Q24H 05/08/16 07:00 05/08/16 06:44 30 MLS/HR Lisinopril (Lisinopril) 10 Mg Tablet, 10 MG PO DAILY, (Reported) Last Taken: on 05/07/16 2200 Pantoprazole (Protonix) 40 Mg Tablet.dr, 40 MG PO DAILY, (Reported) Last Taken: on Unknown Date & Time Currently on Beta Alaina: No Medical/Surgical History Anesthesia PMH: Reports: *Hypertension (PER H&P), Hepatitis (in grade school "the yellow kind that lasts about a month"), Pneumonia (HX OF 1974), Reflux ( PER H&P), Denies: *Angina, *Diabetes, *Dyspnea, *NV, Anesthesia Reactions, Arthritis, Asthma, CHF, COPD, CVA/Stroke/TIA, Cancer, Clotting Problems, Deep Vein Thrombosis, Glaucoma, Headaches, Hiatal Hernia, Malignant Hyperthermia, Renal Disease, Rheumatic Fever, Seizures, Sleep Apnea, Thyroid Disease, Tuberculosis Smoking Status: Never smoker Has pt. smoked today?: No Use Chewing Tobacco?: No Second Hand Exposure: No Substance Use Type: does not use Alcohol Intake: none Past Surgical History Orthopedic Surgeries: Yes - left thumb tendon, right achiles tendon Abdominal Surgeries: Yes - HAYLEE,APPY, PER H&P Genitourinary Surgeries: No Cardiac Surgeries: No Endocrine Surgeries: No Reproductive Surgeries: No Neurological Surgeries: No Ear Surgeries: No Nose Surgeries: No Throat Surgeries: Yes - T&A PER H&P Other Surgeries: Yes - L BREAST BX PER H&P Anesthesia Adverse Reactions: FOUND none Family Hx of Anesthesia Advers: none Pertinent Findings EKG Rhythm: Sinus Rhythm Physical Exam Respiratory: Bilat breath sounds equal, Lungs clear Cardiovascular: FOUND Regular rate, rhythm, FOUND No murmur Airway Assessment Mallampati Score: I TMD: 3 Fingerbreadths Neck Extension: Good Overall Assessment: No Airway Concerns ASA: 2 Plan Anesthesia Plan: TIVA Discussion Discussed risks/options/alternatives of anesthesia and questions answered. Patient consents. Nursing pain assessment noted. Attestation Statement Prior to the delivery of any anesthetic medication, I examined the patient, developed the plan, obtained the patient's consent and discussed the risk and benefits of the procedure with the patient/guardian. RICHAR STILL CRNA May 08, 2016 07:23
[2016-05-08] MEDS ORDERED: PROPOFOL 500mg 50 ML IV ONE (07:55)
[2016-05-08] MEDS ORDERED: LIDOCAINE 2% (20mg/ml) 5ml PF SDV ONE (07:55)
[2016-05-08 08:22] VITALS: BP 111/55; PULSE 76; RESP 12; TEMP 96.9; O2SAT 95
[2016-05-08 08:37] VITALS: BP 112/58; PULSE 75; RESP 16; O2SAT 96
[2016-05-08] MEDS ORDERED: OMEP1CAP25 PO (08:39)
[2016-05-08] MEDS ORDERED: OMEP40CA52 PO (08:41)
[2016-05-08 08:52] VITALS: BP 112/59; PULSE 69; RESP 16; O2SAT 98
[2016-05-08 09:07] VITALS: BP 115/63; PULSE 70; RESP 16; O2SAT 98
--- NOTE | 2016-05-08 09:27 | ANESPO ---
Post-Op Note Date 05/08/16 Time: 09:00 Status Pt Participated in Evaluation: Pt participated in person Vital Signs Date Time Temp Pulse Resp B/P Pulse Ox O2 Delivery O2 Flow Rate FiO2 05/08/16 09:07 70 16 115/63 98 Room Air 05/08/16 08:22 96.9 Respiratory Function: Airway patent Mental Status: Alert/oriented Pain Level Intensity: 0 Hydration: IV infusing Complications during Recovery None apparent Follow-Up Instructions Instructions Per Surgeon RICHAR STILL CRNA May 08, 2016 09:27
--- NOTE | 2016-05-08 10:36 | OPNOTEF ---
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 POSTOPERATIVE DIAGNOSES Colorectal cancer surveillance, history for Powell's esophagus in remote past, history for minimal dysphagia, normal colonoscopy, and a small hiatal hernia with associated distal esophagitis. PROCEDURE Colonoscopy, esophagogastroduodenoscopy with circumferential biopsies from distal esophagus. ANESTHESIA TIVA BRIEF HISTORY/INDICATIONS Mr. Saucedo is a 65-year-old gentleman who presents today to undergo a screening colonoscopy. The patient also has a prior history in the remote past for Powell's esophagus. He has had a history for dysphagia in the past requiring dilatation. Recently the patient has had a slight component of some minimal dysphagia. As a result of the above indications, it was recommended he undergo both an EGD and a colonoscopy. For completeness, please refer to notes included in the patient's chart. FINDINGS Upon colonoscopy there were no mucosal abnormalities noted such as angiodysplastic lesions, polyps, diverticula or rosanna allergies. Upon upper endoscopy, stomach and duodenum were within normal limits. The patient was found to have a small 2-3 cm hiatal hernia in conjunction with a component of distal esophagitis. There were some linear areas of erythema extending proximally from the GE junction. There did appear to be a small superficial ulceration as well present at the distal esophagus. Multiple biopsies were obtained at the distal esophagus via cold biopsy technique. DESCRIPTION OF PROCEDURE After informed consent was obtained, the patient was brought to the endoscopy suite and placed on the table in left lateral decubitus position. The patient subsequently underwent total intravenous anesthesia by the nurse edger machine helper per my request. Formal time-out was then completed. Next, digital rectal examination was performed. Normal sphincter tone. No rectal masses were appreciated. An Olympus colonoscope was inserted in the anus and advanced with the lumen of the colon under direct visualization at all times till the cecum was ascertained. Triangulation of taenia coli, ileocecal valve and appendiceal lumen were all visualized. Scope was slowly withdrawn, again maintaining visualization at all times. The entire colon was without evidence for angiodysplastic lesions, polyps, diverticula or rosanna allergies. Once the scope was withdrawn back to the rectal vault, a J-maneuver was performed. No worrisome perianal pathology was noted. Scope was then allowed to straighten and withdrawn through the anal verge. Next, attention was then focused towards performing upper endoscopy. An Olympus gastroscope was inserted into the oral hypopharynx and subsequently into the esophagus under direct visualization. Gastroscope was advanced through the esophagus, stomach, pylorus, duodenal bulb, into the second portion of duodenum. Scope was slowly withdrawn. First and second portions of the duodenum were within normal limits. There was no evidence of duodenitis or ulcerations noted. Scope was then continued to be withdrawn back to prepyloric region and antrum. Again, no mucosal abnormalities were noted. J-maneuver was performed. Cardia and fundus were within normal limits. The patient was found to have endoscopic evidence for a small hiatal hernia. Scope was allowed to straighten and slowly withdrawn and the remaining corpus of the stomach was well visualized, again without noted abnormalities. Scope was withdrawn back to the level of the diaphragm and subsequently back to the squamocolumnar junction which was about 2-3 cm above the level of the diaphragm. I.e. the patient had about a 2-3 cm small hiatal hernia. The squamocolumnar junction was fairly well demarcated with the exception that there were some linear areas of erythema extending proximally from the GE junction consistent with that of distal esophagitis. There did appear to be a small superficial ulceration as well involving the distal esophagus. There was no evidence for Schatzki's ring or any type of underlying neoplastic process. Findings were more consistent with that of esophagitis than that of Powell's metaplasia. Multiple circumferential biopsies were obtained from the distal esophagus at various lengths. Gastroscope was then slowly withdrawn and remaining esophageal mucosa found within normal limits. The patient tolerated the procedure without difficulty and was sent back to the preop area in stable condition. Await the biopsy results from today's EGD and proceed accordingly with further recommendations thereafter. From a colorectal cancer surveillance standpoint the patient will need a repeat colonoscopy at a 10-year interval. It did not appear upon reviewing the patient's MAR that the he is on a proton pump inhibitor. I do feel, given his endoscopic abnormalities, the patient would benefit from being on a PPI. [facility]
== END 2016-05-08 09:25 | disposition home or self-care (01) ==
LOC: SCU 06:02
PROVIDERS: ATTEND Surgery
DX: Z12.11 Encounter for screening for malignant neoplasm of colon (principal); K22.10 Ulcer of esophagus without bleeding; K21.0 Gastro-esophageal reflux disease with esophagitis; K44.9 Diaphragmatic hernia without obstruction or gangrene; R13.10 Dysphagia, unspecified; Z87.19 Personal history of other diseases of the digestive system; Z79.899 Other long term (current) drug therapy; I10 Essential (primary) hypertension; N40.0 Benign prostatic hyperplasia without lower urinary tract symptoms; Z80.42 Family history of malignant neoplasm of prostate
CPT/HCPCS: 43239; 45378; J7120